=== PATIENT | female | born 2005 | race Caucasian/White ===

== ENCOUNTER 2023-07-06 17:53 | Emergency (ER) | payer MEDICAID | END 2023-07-06 18:03 | disposition left against medical advice (07) | LOC: ER 17:53 | DX: H10.029 Other mucopurulent conjunctivitis, unspecified eye (principal); Z53.21 Procedure and treatment not carried out due to patient leaving prior to being seen by health care provider ==

== ENCOUNTER 2023-07-27 13:45 | Outpatient (CLI) | payer MEDICAID | END 2023-07-27 23:59 | disposition home or self-care (01) | LOC: RAD 13:45 | PROVIDERS: ATTEND Nurse Practitioner Obstetrics & Gynecology | DX: O09.93 Supervision of high risk pregnancy, unspecified, third trimester (principal); Z3A.30 30 weeks gestation of pregnancy | CPT/HCPCS: 76815 ==

== ENCOUNTER → 2023-09-09 | Outpatient (CLI) | payer MEDICAID | END | disposition home or self-care (01) | LOC: RAD 14:40 | PROVIDERS: ATTEND Nurse Practitioner Obstetrics & Gynecology | DX: O09.93 Supervision of high risk pregnancy, unspecified, third trimester (principal) | CPT/HCPCS: 76815 ==